=== PATIENT | male | born 1965 | race Caucasian/White ===

== ENCOUNTER 2017-05-11 11:37 | Emergency (ER) | payer OTHER ==
[~2017-05-11] VITALS: Ht 167.6 cm; Wt 88.5 kg
[2017-05-11 11:48] VITALS: Ht 167.6 cm; Wt 88.5 kg
[2017-05-11] MEDS ORDERED: DIPHENHYDRAMINE 50 MG CAP PO STA (11:57)
[2017-05-11] MEDS ORDERED: EPINEPHrine 1 MG INJ ONE (11:57)
[2017-05-11] MEDS ORDERED: predniSONE 20 MG TAB PO STA (11:57)
[2017-05-11] MEDS ORDERED: EPINEPHrine 1 MG INJ IM STA (11:57)
[2017-05-11] MEDS ORDERED: FAMOTIDINE 20 MG TAB PO STA (11:57)
[2017-05-11 12:41] VITALS: BP 104/82; PULSE 87; RESP 18
[2017-05-11] MEDS ORDERED: BEN25 PO (13:09)
[2017-05-11] MEDS ORDERED: PRED20TA PO (13:09)
[2017-05-11] MEDS ORDERED: EPIN0.3P4 INJ (13:09)
--- NOTE | 2017-05-11 15:25 | ERD ---
ER Documentation Chief Complaint Date/Time DATE: 05/11/17 TIME: 15:23 Chief Complaint bee sting 45 mins ago HPI Patient is a 51-year-old male with no medical problems who presents after a bee sting. This piece stung him 45 minutes ago on the right arm. He has had swelling and rash as well as itchiness. He had trouble swallowing as well. He denies shortness of breath. He tried Mary. He said that he has been stung by bees before but has never had this reaction. His primary doctor is Dr. Ball. ROS All systems reviewed and are negative except as per history of present illness. Medications Home Meds Active Scripts Diphenhydramine Hcl* (Benadryl*) 25 Mg Cap, 25 MG PO Q6, #30 CAP Prov:YUMIKO DOUGLAS MD 05/11/17 Prednisone* (Prednisone*) 20 Mg Tab, 60 MG PO DAILY for 4 Days, TAB Prov:YUMIKO DOUGLAS MD 05/11/17 Epinephrine (Epipen 2-Raman) 0.3 Mg/0.3 Ml Pen.injctr, 1 EA INJ ONCE Y for ALLERGIC REACTION, #1 EA Prov:YUMIKO DOUGLAS MD 05/11/17 Allergies Allergies: Uncoded Allergies: BEE STING (Allergy, Unknown, 05/11/17) PMhx/Soc Medical and Surgical Hx: pt denies Medical Hx, pt denies Surgical Hx Hx Alcohol Use: No Hx Substance Use: No Hx Tobacco Use: No Smoking Status: Never smoker FmHx Family History: diabetes Physical Exam Vitals Vital Signs Date Time Temp Pulse Resp B/P Pulse Ox O2 Delivery O2 Flow Rate FiO2 05/11/17 12:41 87 18 104/82 99 Venturi Mask 05/11/17 12:02 Nasal Cannula 2 05/11/17 11:48 98.5 124 20 117/72 97 Physical Exam Const: Moderate distress secondary to allergic reaction Head: Atraumatic Eyes: Normal Conjunctiva ENT: Swelling of the oropharynx, no stridor over the neck Neck: Full range of motion..~ No meningismus. Resp: Clear to auscultation bilaterally Cardio: Regular rate and rhythm, no murmurs Abd: Soft, non tender, non distended. Normal bowel sounds Skin: Diffuse rash to the body consistent with allergic reaction Back: No midline or flank tenderness Ext: No cyanosis, or edema Neur: Awake and alert Psych: Normal Mood and Affect Results 24 hrs Current Medications Medications (Trade) Dose Ordered Sig/South Route PRN Reason Start Time Stop Time Status Last Admin Dose Admin Diphenhydramine HCl (Benadryl) 50 mg ONCE STAT PO 05/11/17 11:57 05/11/17 11:59 DC 05/11/17 12:13 Epinephrine (EPINEPHrine) 0.3 mg ONCE STAT IM 05/11/17 11:57 05/11/17 11:59 DC 05/11/17 12:12 Famotidine (Pepcid) 20 mg ONCE STAT PO 05/11/17 11:57 05/11/17 11:59 DC 05/11/17 12:13 Prednisone (Prednisone) 60 mg ONCE STAT PO 05/11/17 11:57 05/11/17 11:59 DC 05/11/17 12:13 Procedures/MDM Patient is a 51-year-old male presents with what appears to be acute anaphylaxis after a bee sting. I was concerned because of his airway swelling and therefore the patient was given epinephrine IM as well as prednisone, Pepcid , and Benadryl. He was observed for over an hour and feels much better. His rash is gone and his swelling is gone. The patient will be discharged with a prescription for prednisone, Benadryl, and EpiPen. He can return for any worsening symptoms. Critical Care: Time: 35 minutes excluding all billable procedures. Treatments/Evaluations: Close monitoring and treatment of unstable vital signs, cardiorespiratory, and neurologic status, while maintaining tight balance of fluid, respiratory, and cardiac interventions. Departure Diagnosis: Primary Impression: Anaphylactic reaction to bee sting Encounter type: initial encounter Injury intent: accidental or unintentional Qualified Code: T63.441A - Anaphylactic reaction to bee sting, accidental or unintentional, initial encounter Condition: Fair Patient Instructions: Anaphylaxis, General Referrals: ROSALINDA BALL (PCP) Additional Instructions: Call your primary care doctor TOMORROW for an appointment during the next 1-2 days.See the doctor sooner or return here if your condition worsens before your appointment time. YUMIKO DOUGLAS MD May 11, 2017 15:25
== END 2017-05-11 13:16 | disposition home or self-care (01) ==
LOC: E/R 11:37
DX: T63.441A Toxic effect of venom of bees, accidental (unintentional), initial encounter (principal)
CPT/HCPCS: 96372; 99291; J0171; J7512